=== PATIENT | female | born 1935 | race Caucasian/White ===

== ENCOUNTER 2016-08-26 12:22 | Outpatient (CLI) | payer MEDICARE, OTHER ==
[~2016-08-26] VITALS: Ht 160 cm; Wt 68.2 kg
[2016-08-26 13:21] VITALS: Ht 160 cm; Wt 68.2 kg
== END 2016-08-26 13:30 | disposition home or self-care (01) ==
LOC: D.OPS 12:22
DX: M81.0 Age-related osteoporosis without current pathological fracture (principal)

== ENCOUNTER → 2016-10-13 14:55 | Outpatient (CLI) | payer MEDICARE, OTHER ==
[2016-08-26 13:21] VITALS: BMI 26.6
== END | disposition home or self-care (01) ==
LOC: D.MRI 14:55
DX: R42 Dizziness and giddiness (principal)

== ENCOUNTER → 2017-02-17 13:25 | Outpatient (CLI) | payer MEDICARE, OTHER ==
[~2017-02-17] VITALS: Ht 160 cm; Wt 70.5 kg
[2017-02-17 14:13] VITALS: BP 194/77; Ht 160 cm; Wt 70.5 kg
--- NOTE | 2017-02-17 14:42 | NUR ---
BLOOD PRESSURE BLOOD PRESSURE 196/80 WHICH IS MUCH HIGHER THAN PATIENT'S NORMAL PER HER. DR. ENGEL OFFICE NOTIFIED. SPOKE WITH CYNDI SANCHEZ NURSE, WHO STATED PT'S BP DID NOT TYPICALLY RUN THAT HIGH. SHE WOULD DISCUSS WITH CYNDI ALTMAN AND CONTACT THE PATIENT AT HOME. PT WAS NOT SYMPTOMATIC BUT PATIENT WHEELED OUT IN WHEELCHAIR.
== END | disposition home or self-care (01) ==
LOC: D.OPS 13:25
DX: M81.0 Age-related osteoporosis without current pathological fracture (principal)

== ENCOUNTER → 2017-08-31 10:06 | Outpatient (CLI) | payer MEDICARE, OTHER ==
[2017-02-17 14:13] VITALS: BMI 27.5
--- NOTE | ~2017-08-31 | EC ---
PATIENT:TARUN MOTTA DATE OF SERVICE: 08/31/17 SEX: F MEDICAL RECORD: [id number] DATE OF : 35 [facility] AGE OF PATIENT: 82 ADMISSION DATE: 08/31/17 REFERRING PHYSICIAN: INTERPRETING PHYSICIAN: LUPE GALLAGHER MD ECHOCARDIOGRAM REPORT ECHO CHARGES 4 ECHO COMPLETE Date: 08/31 CLINICAL DIAGNOSIS: HTN, CP, DYSPNEA, PALP. HTN, CP, DYSPENEA, PALP ECHOCARDIOGRAPHIC MEASUREMENTS (adult normal given) AC root (d.<3.7cm) 3.3 cm LV Septum d (<1.2 cm> 1.1 cm Valve Excursion 1.0 cm LV Septum (systole) 1.1 cm Left Atria (s.<4.0cm> 3.7 cm LVPW d(<1.2cm) 0.8 cm RV (d.<2.3cm) 2.6 cm LVPW (sytole) 1.5 cm LV diastole(<5.6CM) 5.5 cm MV E-F(>70mm/sec) cm LV systole 4.4 cm LVOT Diameter 2.1 cm MV exc.(>10mm) cm Est.ejection fraction (50-75%) % DOPPLER: LVIT cm/sec A 92 cm/sec E 72 cm/sec LA cm/sec RVSP 19 mmHg LVOT 54 cm/sec AOP1/2T m/s Asc. Ao 137 cm/sec RVOT 49 cm/sec RA cm/sec PA 53 cm/sec AV Gradient Peak 7.49 mmHg AV Mean 4.40 mmHg AV Area 1.3 cm MV Gradient Peak 4.38 mmHg MV Mean 1.44 mmHg MV Area cm COMMENTS: BARBARA TRACED 1.8 CM2 BARBARA TRACED 1.8 CM2 Equipment Analyst: History Instructor: Marilyn Gallagher TAPE# PACS Pericardial Effusion N DATE OF SERVICE: PROCEDURE: Transthoracic echocardiogram. FINDINGS: 1. Left ventricle is mildly dilated with mild global hypokinesis. Ejection fraction is 45% to 50%. There is left ventricular hypertrophy. Inflow characteristics are consistent with diastolic dysfunction. 2. The left atrium is upper limits of normal. 3. The aortic valve is sclerotic without stenosis. ECHOCARDIOGRAM REPORT [id number] TARUN MOTTA 4. The mitral valve has mild mitral regurgitation. 5. The tricuspid valve is normal. The RVSP is normal. 6. The right ventricle is normal. 7. The right atrium is normal. 8. The pulmonic valve has mild to trace pulmonic insufficiency. 9. The pericardium is normal. 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 TRANSINT:[id number] Voice Confirmation ID: [id number] DOCUMENT ID: [id number] LUPE GALLAGHER MD at 0956 CC: [id number] DICTATION DATE: 09/01/17 09 ASSEMBLY LOADER: 09/01/17 1132 DEP CLI 08/31/17 [facility] [address] [place] [address]
[~2017-08-31 10:06] MED LIST: ARICEPT5 MG PO; CENTRUM SILVER1 TA1 PO; OYST-CAL-5001 TAB PO; PLAQUENIL200 MG PO; SPIRIVA RESPIMAT4 G1 INH; SYNTHROID25 MCG PO; VITAMIN D31000 UNIT PO
== END | disposition home or self-care (01) ==
LOC: D.ECHO 10:06
DX: I10 Essential (primary) hypertension (principal); R07.9 Chest pain, unspecified; R06.02 Shortness of breath; R00.2 Palpitations

== ENCOUNTER 2017-09-28 07:36 | Outpatient (CLI) | payer MEDICARE, OTHER ==
[~2017-09-28] VITALS: Ht 160 cm; Wt 68.2 kg
--- NOTE | ~2017-09-28 | HEMODYNAMI ---
PATIENT:TARUN MOTTA MEDICAL RECORD: [id number] : 35 LOCATION:[facility] ADMISSION DATE: 09/28/17 Generatedon:09/28/201711:11 Patient name: TARUN MOTTA Patient #: [id number] SSN: : 1935 Date of study: 09/28/2017 Page: Of Hemodynamic Procedure Report Patient Data Patient Demographics Procedure consent was obtained First Name: TARUN Gender: Female Last Name: ÁNGELA : 1935 Middle Initial: FELICIA Age: 82 year(s) Patient #: [id number] Race: Unknown Additional ID: [id number] Contact details Address: [address] [place] [address] State: [place] City: [place] Zip code: [address] Past Medical History Allergies: No known allergies Admission Admission Data Admission Date: 09/28/2017 Admission Time: 7:36 Height (in.): 63 BSA: 1.71 (m2) Height (cm.): 160.02 BMI: 26.57 (kg/m2) Weight (lbs.): 150 Weight (kg.): 68.04 Lab Results Lab Result Date: 09/28/2017 Lab Result Time: 0:00 Biochemistry Name Units Result Min Max BUN mg/dl 17 --(---*)-- 7 18 Creatinine mg/dl 1 --(--*-)-- 0.6 1.3 CBC Name Units Result Min Max Hemoglobin g/dl 11.2 *-(----)-- 13.5 17.5 Procedure Procedure Types Cath Procedure Diagnostic Procedure LHC LHC w/Coronaries Peripheral Cath Diagnostic Procedure Cath Peripheral Renal Arteriogram Procedure Description Procedure Date Procedure Date: 09/28/2017 Procedure Start Time: 10:41 Procedure End Time: 11:05 Procedure Staff Name Function Jose Melvin RT Scrub Alan Cutler RN Nurse Nic Garrison MD Performing Physician Procedure Data Cath Procedure Fluoroscopy Diagnostic fluoroscopy Total fluoroscopy Time: 7.5 time: 7.5 min min Diagnostic fluoroscopy Total fluoroscopy dose: 772 dose: 772 mGy mGy Contrast Material Contrast Material Type Amount (ml) Isovue 300 121 Entry Location Entry Primary Successful Side Size Upsize Upsize Entry Closure Cali ccessful Closure Location (Fr) 1 (Fr) 2 (Fr) Remarks Device Remarks Radial Right 6 Fr over the Mechanical artery Short fielder Compression wire Diagnostic catheters Device Type Used For End Catheter Placement DIAGNOSTIC Sekou 110cm LV Angiography 5Fr catheter ([id number]) DIAGNOSTIC AR MOD 5Fr Right Coronary Catheter ([id number]) Angiography Procedure Complications No complications Procedure Medications Medication Administration Route Dosage 0.9% NaCl I.V. 100 ml/hr Oxygen etCO2 Nasal cannula 2 l/min Heparin Flush Bag added to field 2 bags (1000units/500ml NS) Lidocaine 2% added to field 20 Radial Cocktail added to field 1 syringe (Verapomil 2mg/Nitro 400mcg/Heparin 1500units) Versed I.V. 1 mg Fentanyl I.V. 50 mcg Radial Cocktail I.A. 1 syringe (Verapomil 2mg/Nitro 400mcg/Heparin 1500units) Hemodynamics Rest BSA: 1.71 (m2) HGB: 11.2 (g/dl) O2 Consumption: Estimated: 147.13 (ml/min) O2 Co nsumption indexed: Estimated:86.04 (ml/min/m) Heart Rate: 61 (bpm) Pressure Samples Time Site Value (mmHg) Purpose Heart Use Rate(bpm) 10:48 LV 162/6,13 EDP 67 10:49 AO 173/68(111) Pullback 72 10:49 LV 150/9,9 Pullback 72 Gradients Valve Time Site 1 Site 2 Mean SEP/DFP Peak To Heart Use (mmHg) (sec/min) Peak Rate (mmHg) (bpm) Aortic 10:49 LV AO 0 3 0 72 150/9,9 173/68(111) Calculations Valve P-P Mean Valve Index Valve Source Name Gradient Area Flow (cm2) Aortic 0 0 0 0 Snapshots Pre Cath Intra NCS Post Cath Vital Signs Time Heart Resp SPO2 etCO2 NIBP (mmHg) Rhythm Pain Sedation Rate (ipm) (%) (mmHg) Status Level (bpm) 10:27:24 63 14 99 42.9 135/60(100) NSR 0 (11) 10(A) , No pain 10:32:09 60 15 100 42.1 136/59(102) NSR 0 (11) 10(A) , No pain 10:36:54 60 12 100 42.1 126/50(95) NSR 0 (11) 10(A) , No pain 10:41:35 62 12 100 40.6 142/60(100) NSR 0 (11) 10(A) , No pain 10:46:19 67 16 100 36.1 144/63(107) NSR 0 (11) 10(A) , No pain 10:51:02 69 14 100 36.8 153/70(121) NSR 0 (11) 10(A) , No pain 10:55:49 70 10 100 30.8 164/66(116) NSR 0 (11) 10(A) , No pain 11:00:35 74 20 100 24.8 166/78(123) NSR 0 (11) 10(A) , No pain Medications Time Medication Route Dose Verified Delivered Reason Notes Effectiveness by by 10:25:37 0.9% NaCl I.V. 100 Alan Alan Per ml/hr Omayra Cutler physician RN RN 10:25:46 Oxygen etCO2 2 l/min Alan Alan Per Nasal Omayra Cutler physician cannula RN RN 10:25:58 Heparin Flush added 2 bags Alan Alan used for Bag to Omayra Cutler procedure (1000units/500ml field RN RN NS) 10:26:09 Lidocaine 2% added 20ml Alan Alan for local to vial Lordonnell Cutler anesthetic [facility] RN RN 10:26:24 Radial Cocktail added 1 Alan Alan used for (Verapomil to syringe Omayra Cutler procedure 2mg/Nitro field RN RN 400mcg/Heparin 1500units) 10:41:43 Versed I.V. 1 mg Alan Alan for sedation Omayra Cutler RN RN 10:41:51 Fentanyl I.V. 50 mcg Alan Alan for sedation Omayra Cutler RN RN 10:47:03 Radial Cocktail I.A. 1 Alan Nic for (Verapomil syringe Omayra rodriguez 2mg/Nitro RN 400mcg/Heparin 1500units) Procedure Log Time Note 10:11:13 Informed consent obtained and on chart 10:11:53 Diagnostic Cath status Elective 10:11:54 Alan Cutler RN sent for patient. Start room use. 10:11:55 Time tracking: Regular hours (M-F 7:00 - 5:00) 10:11:58 Plan of Care:Hemodynamics will remain stable., Cardiac rhythm will remain stable., Comfort level will be maintained., Respiratory function will remain adequate., Patient/ family verbilizes understanding of procedure., Procedure tolerated without complication., Recovers from procedure without complications.. 10:13:11 Patient received from Pre/Post Procedure Room to CCL 1 Alert and oriented. Tansferred to table in Supine position. 10:13:12 Warm blankets applied, and carlton hugger turned on for patient comfort. 10:13:12 Correct patient and procedure confirmed by team. 10:13:13 ECG and BP/O2 sat monitors applied to patient. 10:13:23 H&P Date Dictated: 09/15/2017 Within 30 days and on chart., H&P Addendum completed by physician on day of procedure. (MUST COMPLETE FOR ALL OUTPATIENTS). 10:13:24 Pre-procedure instructions explained to patient. 10::25 Pre-op teaching completed and patient verbalized understanding. 10:13:26 Family in waiting room. 10::27 Patient NPO since Midnight. 10:25:37 0.9% NaCl 100 ml/hr I.V. was administered by Alan Cutler RN; Per physician; 10:25:46 Oxygen 2 l/min etCO2 Nasal cannula was administered by Alan Cutler RN; Per physician; 10:25:58 Heparin Flush Bag (1000units/500ml NS) 2 bags added to field was administered by Alan Cutler RN; used for procedure; 10:26:09 Lidocaine 2% 20ml vial added to field was administered by Alan Cutler RN; for local anesthetic; 10:26:24 Radial Cocktail (Verapomil 2mg/Nitro 400mcg/Heparin 1500units) 1 syringe added to field was administered by Alan Ctuler RN; used for procedure; 10:26:30 Vital chart was started 10:27:31 Patient allergic to No known allergies 10:27:33 Is the patient allergic to Iodine/contrast media? No. 10:27:41 Is patient on blood thinner?Yes 10:27:45 ACC The patient was administered the following blood thiners within the last 24 hours: ACCPlavix 10:27:48 Patient diabetic? No. 10:27:51 If diabetic: On Metformin? No 10:27:52 ----Pre-sedation anethsthesia assessment.---- 10:27:56 Previous problem with sedation/anesthesia? No ? 10:27:57 Snore? Yes 10:27:59 Sleep apnea? No 10:28:00 Deviated septum? No 10:28:02 Opens mouth fully? Yes 10:28:03 Sticks out tongue? Yes 10:28:08 Airway obstruction? Yes COPD 10:28:23 Dentures? Yes IN TIGHT 10:28:31 Pre procedure: right dorsailis pedis pulse 1+ Palpable, but thready & weak; easily obliterated 10:28:35 Modified Eliezer's test Ulnar < 7 seconds 10:28:38 Patient pain scale 0/10 ?. 10:28:46 IV patent on arrival in left hand with 0.9% NaCl at 10ml/hr. 10:29:07 Lab Result : BUN 17 mg/dl 10:29:07 Lab Result : Creatinine 1 mg/dl 10:29:07 Lab Result : Hemoglobin 11.2 g/dl 10:29:11 Lab results completed and on chart. 10:29:14 Right Radial & Right Groin area was prepped with chlora-prep and draped in sterile fashion 10:29:16 Alarms reviewed by R. N. 10:29:17 Sharps counted by scrub and verified by R.N. 10:29:19 Physician paged 10:33:45 Zero performed for pressure channel P1 10:34:23 Patient Height : 63 inches 10:34:27 Patient Weight : 150 lbs 10:36:14 Reachpod - Inovaktif Bilisim RT monitor 10:36:29 Baseline sample Acquired. 10:36:30 Full Disclosure recording started 10:36:34 Rhythm: sinus rhythm 10:38:33 Physician responded to page. 10:38:34 --------ALL STOP TIME OUT------ 10:38:34 Final Timeout: patient, procedure, and site verified with staff and physician. All members of the team are in agreement. 10:38:36 Right Radial & Right Groin site verified by team. 10:38:44 Physical assessment completed. ASA score P 2 - A patient with mild systemic disease as per Jose GERARDO(R). 10:39:07 Sedation plan: IV Moderate Sedation Medication:Versed, Fentanyl 10:41:28 Use device set Radial Dx or PCI 10:41:29 ACIST Syringe (10053) opened to sterile field. 10:41:30 Medline Cath Pack ([id number]) opened to sterile field. 10:41:30 Bag Decanter (2002S) opened to sterile field. 10:41:31 DIAGNOSTIC WIRE .035 260cm J wire (452779) opened to sterile field. 10:41:32 ACIST Hand Control (60238) opened to sterile field. 10:41:33 ACIST Manifold (23513) opened to sterile field. 10:41:33 Tegaderm 4 x 4 (1626W) opened to sterile field. 10:41:34 MBrace Wrist Support ([id number]) opened to sterile field. 10:41:36 NEEDLE Cook 21G 4cm Radial (R01301) opened to sterile field. 10:41:37 TR BAND Standard ([id number]) opened to sterile field. 10:41:43 Procedure started. 10:41:43 Versed 1 mg I.V. was administered by Alan Cutler RN; for sedation; 10:41:51 Fentanyl 50 mcg I.V. was administered by Alan Cutler RN; for sedation; 10:41:59 Local anesthetic to right radial artery with Lidocaine 2% by Nic Garrison MD.INITIAL ACCESS ONLY 10:42:09 A 6 Fr Short sheath was inserted into the Right Radial arteryover the fielder wire 10:43:53 FIELDER XT 190cm guidewire ([id number]) opened to sterile field. 10:43:59 SHEATH 6Fr Prelude Radial ([id number]) opened to sterile field. 10:46:46 GLIDE WIRE ANGLE 260cm (FH4014) opened to sterile field. 10:47:03 Radial Cocktail (Verapomil 2mg/Nitro 400mcg/Heparin 1500units) 1 syringe I.A. was administered by Nic Garrison MD; for vasodilation; 10:47:07 A DIAGNOSTIC Sekou 110cm 5Fr catheter (255194) was advanced over the wire and used for LV Angiography. 10:48:37 LV angiography performed. 10:48:39 LV gram done using PAREKH 10:48:42 LV hemodynamics recorded. 10:51:16 LCA angiography performed. 10:54:27 Catheter exchanged over wire. 10:54:50 A DIAGNOSTIC AR MOD 5Fr Catheter ([id number]) was advanced over the wire and used for Right Coronary Angiography. 10:56:17 RCA angiography performed. 10:58:51 Left renal angiography performed. 10:58:53 Right renal angiography performed. 10:59:29 Catheter removed. 10:59:56 Sheath removed intact; hemostasis achieved with Mechanical Compression to the Right Radial artery. 11:00:00 Procedure ended.(Physican Out) 11:01:29 Fluoroscopy time 07.50 minutes. 11:01:38 Fluoroscopy dose: 772 mGy 11:01:38 Flurop Dose total: 772 11:01:51 Contrast amount:Isovue 300 121ml. 11:01:53 Sharps counted by scrub and verified by R.N. 11:02:40 TR band inflated with 15cc of air. 11:02:47 Post right radial artery:stable 11:02:48 Post Procedure Pulses reassessed and unchanged 11:02:51 Post procedure: right dorsailis pedis pulse 1+ Palpable, but thready & weak; easily obliterated. 11:02:55 Post procedure rhythm: sinus rhythm 11:02:56 Post procedure instruction explained to patient.Patient verbalizes understanding. 11:02:57 Procedure and supply charges have been captured, reviewed, submitted and are correct. 11:03:03 Procedure Complication : No complications 11:04:51 Vital chart was stopped 11:04:51 See physician's report for complete and final results. 11:04:54 Report given to Pre/Post Procedure Room. 11:04:59 Patient transfered to Pre/Post Procedure Room with Stretcher. 11:05:01 Procedure ended. 11:05:01 Full Disclosure recording stopped 11:05:05 End room use (Document Last) Device Usage Item Name Manufacture Quantity Catalog Number Hospital Part Current M inimal Lot# / Charge Number Stock Stock Serial# Code ACIST Syringe Acist 1 45362 666726 367387 112385 2 0 (04519) oNoise Medline Cath Cardinal 1 [id number] 058874 74184 468184 5 DocsInk ([id number]) Bag Decanter Microtek 1 2001S 987098 05900 959895 5 () [employer] Inc. DIAGNOSTIC WIRE [facility] [place] 1 579707 413515 625789 788324 3 0 .035 260cm J wire (890649) ACIST Hand Acist 1 58216 630866 827494 054367 5 Control (70136) Medical Systems Inc ACIST Manifold Acist 1 11993 220637 990780 758362 5 (73391) Medical Systems Inc Tegaderm 4 x 4 3M 1 1626W 747195 912693 318699 5 (1626W) MBrace Wrist Advanced 1 140-0250-00 692330 07225 891096 5 Support Vascular ([id number]) Dynamics NEEDLE Cook 21G Cook Medical 1 [id number] 551624 200998 508706 5 4cm Radial (Z10370) TR BAND Terumo 1 [id number] 033700 527223 505828 4 0 Standard ([id number]) FIELDER XT Sarabia 1 [id number] 054738 78015 719593 5 190cm guidewire Vascular ([id number]) SHEATH 6Fr Merit 1 [id number] 243234 877951 432840 5 Prelude Radial Medical ([id number]) GLIDE WIRE Terumo 1 BK8591 476361 434993 480708 5 ANGLE 260cm (LR3513) DIAGNOSTIC Terumo 1 40-9148 105018 868907 786114 5 Sekou 110cm 5Fr catheter (326231) DIAGNOSTIC AR Cardinal 1 [id number] 022855 786925 620917 1 5 MOD 5Fr Health Catheter ([id number]) Signature Audit Hood Stage Time Signature Unsigned Intra-Procedure 09/28/2017 Jose Melvin 11:11:05 AM RT(R) [facility] [address] [place] [address]
--- NOTE | ~2017-09-28 | OP ---
PATIENT NAME: TARUN MOTTA MEDICAL RECORD: [id number] :35 LOCATION:[facility] ADMISSION DATE: SURGEON: LUPE GALLAGHER MD DATE OF OPERATION: 09/28/2017 PROCEDURE: Left heart cath, LV gram, coronary angiogram, selective bilateral renal angiogram. DESCRIPTION OF PROCEDURE: The patient was brought to the cardiac catheterization lab in stable condition. Both groins were sterilely prepped and draped, including the right wrist. The patient had a 6-Belgian sheath placed in right radial artery using modified Seldinger technique. The patient then had selective angiography of the left ventricular cavity, the left main coronary artery and the right coronary artery. We then advanced the catheter into the left renal and selectively engaged the left renal and the right renal artery for renal angiography. The procedure was terminated without any complications. FINDINGS: 1. Hemodynamics: Left ventricular ejection fraction is 50% with mild basilar hypokinesis. There is 1-2+ mitral regurgitation. There is no gradient across the aortic valve. There is mild mitral annular calcification on fluoroscopy. 2. Left main is a small vessel with mild plaquing. 3. The LAD has diffuse plaquing and diffuse calcifications. 4. The circumflex is a nondominant vessel with diffuse calcified plaquing and the OM that has a mid 40% to 50% stenosis. 5. The RCA has diffuse calcified plaquing and a mid 40% stenosis, this is a dominant vessel. 6. The left renal artery has mild plaquing. 7. The right renal artery has a 40% ostial stenosis. IMPRESSION: Mild diffuse coronary artery disease, mild right renal artery stenosis. RECOMMENDATIONS: Medical management. TRANSINT:[id number] Voice Confirmation ID: [id number] DOCUMENT ID: [id number] LUPE GALLAGHER MD at 1144 CC: [id number] DICTATION DATE: 09/28/17 1104 GEOLOGY ASSOCIATE: 09/28/17 1306 DEP CLI 09/28/[address] [address]
[2017-09-28] MEDS ORDERED: CENTRUM SILVER1 TA1 PO (08:05)
[2017-09-28] MEDS ORDERED: VITAMIN D31000 UNIT PO (08:06)
[2017-09-28] MEDS ORDERED: OYST-CAL-5001 TAB PO (08:06)
[2017-09-28] MEDS ORDERED: SYNTHROID25 MCG PO (08:07)
[2017-09-28] MEDS ORDERED: ARICEPT5 MG PO (08:07)
[2017-09-28] MEDS ORDERED: PLAQUENIL200 MG PO (08:07)
[2017-09-28] MEDS ORDERED: SPIRIVA RESPIMAT4 G1 INH (08:08)
[2017-09-28 08:26] VITALS: BP 164/52; Ht 160 cm; Wt 68.2 kg
[2017-09-28 08:45] LABS: BASOPHILS 0.6 % (0-2); EOSINOPHILS 6.1 % (0-7); HEMATOCRIT 33.4 % (36.0-48.0); HEMOGLOBIN 11.2 g/dL (12-16); IMMATURE GRANULOCYTES 0.2 % (0-5); LYMPHOCYTES 27.3 % (15-50); MCH 29.6 pg (26.0-34.0); MCHC 33.5 g/dL (31.0-37.0); MCV 88.4 fL (80.0-100.0); MEAN PLATELET VOLUME 9.3 fL (7.4-10.4); MONOCYTES 9.5 % (2-11); NEUTROPHILS 56.3 % (40-80); PLATELET COUNT 149 10x3/uL (130-400); RBC 3.78 10x6/uL (4.00-5.40); RDW 13.6 % (11.5-14.5); WBC 4.9 10x3/uL (4.8-10.8)
[2017-09-28 08:49] LABS: ANION GAP 10.4 mmol/L (8-16); CALCIUM 8.7 mg/dL (8.5-10.1); CARBON DIOXIDE 28.5 mmol/L (21.0-32.0); POTASSIUM - SERUM 3.9 mmol/L (3.5-5.1)
== END 2017-09-28 14:49 | disposition home or self-care (01) ==
LOC: D.CATH 07:36
PROVIDERS: Internal Medicine Cardiovascular Disease
DX: R07.9 Chest pain, unspecified (principal); I25.10 Atherosclerotic heart disease of native coronary artery without angina pectoris; I70.1 Atherosclerosis of renal artery

== ENCOUNTER → 2017-10-20 17:16 | Outpatient (CLI) | payer MEDICARE, OTHER ==
[2017-09-28 08:26] VITALS: BMI 26.6
[2017-10-20 20:03] LABS: CHOL - HDL RATIO 2.7 ratio (2.3-4.1); LDL-HDL RATIO 1.3 ratio (1.5-3.5)
== END | disposition home or self-care (01) ==
LOC: D.LABREF 17:16
PROVIDERS: Internal Medicine Cardiovascular Disease
DX: E78.5 Hyperlipidemia, unspecified (principal)